=== PATIENT | female | born 1950 | race Caucasian/White ===

== ENCOUNTER 2016-06-30 08:59 | Day surgery (SDC) | payer MEDICARE, OTHER ==
[~2016-06-30] VITALS: Ht 165.1 cm
== END 2016-06-30 12:05 | disposition home or self-care (01) ==
LOC: RAD.S 08:59 → EDSTATUS 10:00 → RAD.S 10:00
PROC: 0DBS3ZX (ICD-10-PCS; principal; 2016-06-30)
DX: C48.1 Malignant neoplasm of specified parts of peritoneum (principal); Z87.891 Personal history of nicotine dependence; Z90.49 Acquired absence of other specified parts of digestive tract; Z98.890 Other specified postprocedural states; Z79.899 Other long term (current) drug therapy; Z79.82 Long term (current) use of aspirin